=== PATIENT | male | born 1975 | race Caucasian/White ===

== ENCOUNTER 2017-11-26 08:48 | Day surgery (SDC) | payer BC ==
[~2017-11-26 08:48] MED LIST: Lactated Ringers 1,000 ML IV SCH
[2017-11-26] MEDS ORDERED: Lidocaine 2% 5 ML SDV ONE (09:50)
[2017-11-26] MEDS ORDERED: Midazolam 1 MG/ML 2 ML SDV ONE (09:51)
[2017-11-26] MEDS ORDERED: Propofol 200 MG/20 ML SDV ONE ×3 (09:51→10:09)
--- NOTE | 2017-11-26 09:55 | PCM.PREANE ---
Preanesthetic Assessment - Procedure Proposed Procedure: EGD - Anesthesia/Transfusion/Family Hx Anesthesia History: Prior Anesthesia Without Reaction Transfusion History: No Prior Transfusion(s) Intubation History: Unknown - Review of Systems General: Other (obesity) Pulmonary: No Symptoms Cardiovascular: No Symptoms Gastrointestinal: Other (GERD) Neurological: No Symptoms Other: Reports: None - Physical Assessment NPO Status Date: 11/25/17 NPO Status Time: 22:00 O2 Sat by Pulse Oximetry: 98 Respiratory Rate: 16 Vital Signs: Last Vital Signs Temp 97.0 F 11/26/17 09:01 Pulse 89 11/26/17 09:01 Resp 16 11/26/17 09:01 BP 126/69 11/26/17 09:01 Pulse Ox 98 11/26/17 09:01 Height: 5 ft 6 in Weight: 248 lb ASA Class: 2 Mental Status: Alert & Oriented x3 Airway Class: Mallampati = 2 Dentition: Reports: Normal Dentition Thyro-Mental Finger Breadths: 3 (goatee) Mouth Opening Finger Breadths: 3 ROM/Head Extension: Limited/Partial (short neck) Lungs: Clear to Auscultation, Normal Respiratory Effort Cardiovascular: Regular Rate, Regular Rhythm, No Murmurs - Allergies Allergies/Adverse Reactions: Allergies Allergy/AdvReac Type Severity Reaction Status Date / Time No Known Allergies Allergy Verified 11/22/17 10:02 - Blood Blood Available: No Product(s) Available: None - Anesthesia Plan Pre-Op Medication Ordered: None - Acknowledgements Anesthesia Type Planned: MAC Pt an Appropriate Candidate for the Planned Anesthesia: Yes Alternatives and Risks of Anesthesia Discussed w Pt/Guardian: Yes Pt/Guardian Understands and Agrees with Anesthesia Plan: Yes PreAnesthesia Questionnaire HEENT History: Reports: Other (See Below) Other HEENT History: uses reading glasses Musculoskeletal History: Reports: Fracture Other Musculoskeletal History: hx of fx hand Endocrine/Metabolic History: Reports: Obesity/BMI 30+ - Past Surgical History GI Surgical History: Reports: EGD, Hernia, Inguinal - SUBSTANCE USE Smoking Status *Q: Former Smoker Tobacco Use Within Last Twelve Months: No Recreational Drug Use History: No - HOME MEDS Home Medications: Home Meds Montelukast Sodium 10 mg PO BEDTIME PRN 11/22/17 [History] Omeprazole 20 mg PO DAILY 11/22/17 [History] - CURRENT (IN HOUSE) MEDS Current Meds: Current Medications Lactated Ringer's (Ringers, Lactated) 1,000 mls @ 125 mls/hr IV ASDIRECTED [facility] Last Admin: 11/26/17 09:05 Dose: 125 mls/hr
[2017-11-26] MEDS ORDERED: Sodium Chloride 0.9% 2.5 ML Syringe FLUSH PRN (10:15)
[2017-11-26] MEDS ORDERED: Ondansetron 4 MG/2 ML SDV IVPUSH PRN (10:15)
[2017-11-26] MEDS ORDERED: Sodium Chloride 0.9% 10 ML Syringe FLUSH PRN (10:15)
--- NOTE | 2017-11-26 10:18 | PCM.OPNOTE ---
- General Post-Op/Procedure Note Date of Surgery/Procedure: 11/26/17 Operative Procedure(s): Esophagogastroduodenoscopy with biopsy Pre Op Diagnosis: Gastroesophageal reflux disease with persistent cough. Post-Op Diagnosis: Gastritis. Hiatal hernia. Anesthesia Technique: MAC (ASA II) Primary Surgeon: Derrek Armenta Gyro Mechanic: Mark Cash Condition: Good Free Text/Narrative:: DICTATION [id number] CPT CODE 96480
--- NOTE | 2017-11-26 10:46 | PCM.POSTAN ---
POST ANESTHESIA ASSESSMENT - MENTAL STATUS Mental Status: Alert, Oriented - RESPIRATORY Respiratory Status: Respiratory Rate WNL, Airway Patent, O2 Saturation Stable - CARDIOVASCULAR CV Status: Pulse Rate WNL, Blood Pressure Stable - GASTROINTESTINAL GI Status: No Symptoms - POST OP HYDRATION Hydration Status: Adequate & Stable
--- NOTE | 2017-11-26 11:04 | PCM48HPAN ---
Post Anesthesia Note - EVALUATION WITHIN 48HRS OF ANESTHETIC Vital Signs in Normal Range: Yes Patient Participated in Evaluation: Yes Respiratory Function Stable: Yes (coughing similar to what he had been doing at home preop) Airway Patent: Yes Cardiovascular Function Stable: Yes Hydration Status Stable: Yes Pain Control Satisfactory: Yes Nausea and Vomiting Control Satisfactory: Yes Mental Status Recovered: Yes Resp Rate: 19
[2017-11-26] MEDS ORDERED: Racepinephrine 2.25% 0.5 ML Neb Soln NEB ONE (11:11)
--- NOTE | 2017-11-26 11:15 | PCM.SN ---
- Free Text/Narrative Note: Patient continues to cough. Consulted surgeon and agreed to try a racemic epinephrine treatment. See orders.
--- NOTE | 2017-11-26 13:00 | OR ---
SURGEON: Derrek Armenta M.D. DATE OF PROCEDURE: 11/26/2017 OPERATION PERFORMED: Esophagogastroduodenoscopy with biopsy. MANAGER CASE: Dr. Chacon, PGY2 ANESTHESIA: MAC. ASA CLASSIFICATION: II. PREOPERATIVE DIAGNOSIS: Gastroesophageal reflux disease with persistent cough. POSTOPERATIVE DIAGNOSES: 1. Mild gastritis. 2. Hiatal hernia without significant esophagitis. DESCRIPTION OF PROCEDURE: The patient was taken to the endoscopy room, positioned on the endoscopy table in the supine position. Time-out was called for appropriate identification of patient and procedure. Monitored anesthesia care was provided. The bite block was placed between the patient's teeth. The gastroscope was inserted through the bite block into the oropharynx and advanced through the esophagus and stomach into the duodenum where examination was now carried out in a retrograde fashion. The duodenum shows no acute inflammatory changes or ulcerations. The stomach does show [id number] gastritis. Antral biopsies were obtained to look for the presence of Helicobacter pylori. No ulcerations were noted. The gastroscope was retroflexed to visualize the proximal stomach. Hiatal hernia was again viewed from below. Again, no acute inflammatory changes were noted in the stomach. The gastroscope was then straightened and slowly withdrawn, aspirating the stomach as the scope was withdrawn. There did not appear to be any significant esophagitis and certainly no esophageal erosions or ulcerations were noted. The vocal cords were briefly visualized as the scope was withdrawn and noted to move symmetrically. The gastroscope was then removed with the patient having tolerated the procedure well. He was taken to recovery room in stable condition. GIACOMO / JOSE /[id number]
== END 2017-11-26 11:49 | disposition home or self-care (01) ==
LOC: MW.SDS 08:48
PROVIDERS: ATTEND Surgery
DX: K21.9 Gastro-esophageal reflux disease without esophagitis (principal); R05 Cough; K29.50 Unspecified chronic gastritis without bleeding; K44.9 Diaphragmatic hernia without obstruction or gangrene; J45.909 Unspecified asthma, uncomplicated; E66.9 Obesity, unspecified; Z68.41 Body mass index [BMI] 40.0-44.9, adult; Z79.899 Other long term (current) drug therapy; Z98.890 Other specified postprocedural states
CPT/HCPCS: 43239; 88305; 88312; 94640; J2250; J2704; J7120; 00731

== ENCOUNTER 2017-11-27 16:08 | Emergency (ER) | payer BC ==
[2017-11-27] MEDS ORDERED: Sodium Chloride 0.9% 10 ML Syringe FLUSH PRN ×2 (16:14→16:23)
[2017-11-27] MEDS ORDERED: Sodium Chloride 0.9% 2.5 ML Syringe FLUSH PRN ×2 (16:14→16:23)
--- NOTE | 2017-11-27 16:14 | EDM.PDOC ---
ED HPI GENERAL MEDICAL PROBLEM - General Stated Complaint: CHEST PAIN AND SHORTNESS OF BREATH Time Seen by Provider: 11/27/17 16:11 - History of Present Illness INITIAL COMMENTS - FREE TEXT/NARRATIVE: HISTORY AND PHYSICAL: History of present illness: The patient is a 42-year-old male who underwent same-day surgery yesterday for an EGD with biopsy under Mac anesthesia and was diagnosed with mild gastritis and a hiatal hernia and today presents to the ED with complaints of burning- like sensation in his mid chest and epigastrium associated with shortness of breath that occurred while he was walking up some stairs at work earlier. The patient states that after the procedure yesterday he just felt really wiped out and one home and slept and slept the whole night. He said this morning he woke up and felt fine and has been eating and drinking normally without difficulty swallowing foreign body sensation shortness of breath or chest pain. The discomfort that he is describing started when he was walking up some stairs and he felt like he was very short of breath and he had a burning-like sensation. The discomfort did not radiate and he did not take any [id number] medications or extra antacids for it. The patient says that he did have biopsies performed and he is currently on omeprazole and nothing has been adjusted or changed with respect to his therapy until he meets with Dr. Armenta next week area he initially presented to our clinic with complaints of a dry hacking cough and the EGD was performed because of those symptomatologies. The patient has not had any vomiting diarrhea black or tarry stools and has no productive cough fevers or chills. The ED the patient has a dry cough which I can appreciate and he does not feel short of breath. The patient and called the triage nurse at our clinic who referred him here. Review of systems: As per history of present illness and below otherwise all systems reviewed and negative. Past medical history: As per history of present illness and as reviewed below otherwise noncontributory. Surgical history: As per history of present illness and as reviewed below otherwise noncontributory. Social history: No reported history of drug or alcohol abuse. Family history: As per history of present illness and as reviewed below otherwise noncontributory. Physical exam: General: Well-developed well-nourished mildly overweight man who is nontoxic and speaks clearly and easily in the ED. He has a dry hacking cough in the ED which is very episodic but is not breathless on my conversation. Vital signs are noted by me HEENT: Atraumatic, normocephalic, negative for conjunctival pallor or scleral icterus, mucous membranes moist, throat clear, neck supple, nontender, trachea midline. Lungs: Clear to auscultation, breath sounds equal bilaterally, chest nontender. There is some slightly diminished breath sounds in the bases but there is no work of breathing or wheezing or stridor. There is no crepitus on palpation of the chest wall Heart: S1S2, regular rate and rhythm no overt murmurs Abdomen: Soft, nondistended, nontender. Negative for masses or hepatosplenomegaly. NABS Pelvis: Deferred Genitourinary: Deferred. Rectal: Deferred. Extremities: Atraumatic, negative for cords or calf pain. Neurovascular unremarkable. No pedal edema Neuro: Awake, alert, oriented. Cranial nerves II through XII unremarkable. Cerebellum unremarkable. Motor and sensory unremarkable throughout. Exam nonfocal. Diagnostics: EKG chest x-ray CBC CMP troponin H. pylori d-dimer Therapeutics: IV O2 monitor Protonix GI cocktail Patient and at bedside are aware of all testing results and after the GI cocktail and Protonix he feels significantly better. I did offer him observation admission due to the peculiar nature of this episode and he is declining that at this time. I will contact Dr. Armenta and see if you like me to change his home medication or add anything with the biopsies pending. The patient is aware of my concerns and accepts them. He still has a dry cough on my evaluation and will follow-up with his provider in the clinic regarding that. 1740: Case was discussed with Dr. Armenta who would like the patient to take his omeprazole twice a day and would like to add Carafate. Impression: Episode of atypical chest pain/dyspnea with history of gastritis and hiatal hernia improved Definitive disposition and diagnosis as appropriate pending reevaluation and review of above. epigastric Pain Score (Numeric/FACES): 3 - Related Data Allergies Allergy/AdvReac Type Severity Reaction Status Date / Time No Known Allergies Allergy Verified 11/27/17 16:17 Home Meds: Home Meds Montelukast Sodium 10 mg PO BEDTIME PRN 11/22/17 [History] Omeprazole 20 mg PO DAILY 11/22/17 [History] Past Medical History HEENT History: Reports: Other (See Below) Other HEENT History: uses reading glasses Musculoskeletal History: Reports: Fracture Other Musculoskeletal History: hx of fx hand Endocrine/Metabolic History: Reports: Obesity/BMI 30+ - Past Surgical History GI Surgical History: Reports: EGD, Hernia, Inguinal ED ROS GENERAL - Review of Systems Review Of Systems: ROS reveals no pertinent complaints other than HPI. ED EXAM, GENERAL - Physical Exam Exam: See Below (See dictation) Course - Vital Signs Last Recorded V/S: Last Vital Signs Temp 36.6 C 11/27/17 16:17 Pulse 104 H 11/27/17 16:17 Resp 16 11/27/17 16:17 BP 141/79 H 11/27/17 16:17 Pulse Ox 98 11/27/17 16:17 - Orders/Labs/Meds Orders: Active Orders 24 hr Category Date Time Status Cardiac Monitoring [RC] . DIRECTED Care 11/27/17 16:14 Active EKG Documentation Completion [RC] STAT Care 11/27/17 16:14 Active Oxygen Therapy, ED [RC] ASDIRECTED Care 11/27/17 16:14 Active Pulse Oximetry [RC] ASDIRECTED Care 11/27/17 16:14 Active Chest 2V [CR] Stat Exams 11/27/17 16:24 Taken Sodium Chloride 0.9% [Saline Flush] Med 11/27/17 16:23 Active 10 ml FLUSH ASDIRECTED PRN Sodium Chloride 0.9% [Saline Flush] Med 11/27/17 16:23 Active 2.5 ml FLUSH ASDIRECTED PRN Saline Lock Insert [OM.PC] Stat Oth 11/27/17 16:24 Ordered Medication Orders Sodium Chloride (Saline Flush) 10 ml FLUSH ASDIRECTED PRN PRN Reason: Keep Vein Open Sodium Chloride (Saline Flush) 2.5 ml FLUSH ASDIRECTED PRN PRN Reason: Keep Vein Open Labs: Laboratory Tests 11/27/17 11/27/17 11/27/17 Range/Units 16:35 16:35 16:35 WBC 9.93 (4.0-11.0) K/uL RBC 5.13 (4.50-5.90) M/uL Hgb 14.0 (13.0-17.0) g/dL Hct 41.0 (38.0-50.0) % MCV 79.9 L (80.0-98.0) fL MCH 27.3 (27.0-32.0) pg MCHC 34.1 (31.0-37.0) g/dL RDW Std Deviation 42.3 (28.0-62.0) fl RDW Coeff of Sony 15 (11.0-15.0) % Plt Count 189 (150-400) K/uL MPV 9.60 (7.40-12.00) fL Neut % (Auto) 77.7 (48.0-80.0) % Lymph % (Auto) 14.8 L (16.0-40.0) % Yates % (Auto) 6.6 (0.0-15.0) % Eos % (Auto) 0.8 (0.0-7.0) % Baso % (Auto) 0.1 (0.0-1.5) % Neut # (Auto) 7.7 H (1.4-5.7) K/uL Lymph # (Auto) 1.5 (0.6-2.4) K/uL Yates # (Auto) 0.7 (0.0-0.8) K/uL Eos # (Auto) 0.1 (0.0-0.7) K/uL Baso # (Auto) 0.0 (0.0-0.1) K/uL Nucleated RBC % 0.0 /100WBC Nucleated RBCs # 0 K/uL D-Dimer, Quantitative (0.0-0.52) mg/LFEU Sodium 137 (136-148) mmol/L Potassium 3.6 (3.5-5.1) mmol/L Chloride 103 (98-107) mmol/L Carbon Dioxide 23.8 (21.0-32.0) mmol/L BUN 17 (7.0-18.0) mg/dL Creatinine 1.2 (0.8-1.3) mg/dL Est Cr Clr Drug Dosing 72.37 mL/min Estimated GFR (MDRD) > 60.0 ml/min Glucose 106 (74-106) mg/dL Calcium 8.9 (8.5-10.1) mg/dL Total Bilirubin 0.5 (0.2-1.0) mg/dL AST 16 (15-37) IU/L ALT 32 (14-63) IU/L Alkaline Phosphatase 55 (46-116) U/L Troponin I < 0.050 (0.000-0.056) ng/mL Total Protein 7.6 (6.4-8.2) g/dL Albumin 3.9 (3.4-5.0) g/dL Globulin 3.7 H (2.0-3.5) g/dL Albumin/Globulin Ratio 1.1 L (1.3-2.8) H. pylori IgG Antibody NEGATIVE (NEG) 11/27/17 Range/Units 16:35 WBC (4.0-11.0) K/uL RBC (4.50-5.90) M/uL Hgb (13.0-17.0) g/dL Hct (38.0-50.0) % MCV (80.0-98.0) fL MCH (27.0-32.0) pg MCHC (31.0-37.0) g/dL RDW Std Deviation (28.0-62.0) fl RDW Coeff of Sony (11.0-15.0) % Plt Count (150-400) K/uL MPV (7.40-12.00) fL Neut % (Auto) (48.0-80.0) % Lymph % (Auto) (16.0-40.0) % Yates % (Auto) (0.0-15.0) % Eos % (Auto) (0.0-7.0) % Baso % (Auto) (0.0-1.5) % Neut # (Auto) (1.4-5.7) K/uL Lymph # (Auto) (0.6-2.4) K/uL Yates # (Auto) (0.0-0.8) K/uL Eos # (Auto) (0.0-0.7) K/uL Baso # (Auto) (0.0-0.1) K/uL Nucleated RBC % /100WBC Nucleated RBCs # K/uL D-Dimer, Quantitative 0.23 (0.0-0.52) mg/LFEU Sodium (136-148) mmol/L Potassium (3.5-5.1) mmol/L Chloride (98-107) mmol/L Carbon Dioxide (21.0-32.0) mmol/L BUN (7.0-18.0) mg/dL Creatinine (0.8-1.3) mg/dL Est Cr Clr Drug Dosing mL/min Estimated GFR (MDRD) ml/min Glucose (74-106) mg/dL Calcium (8.5-10.1) mg/dL Total Bilirubin (0.2-1.0) mg/dL AST (15-37) IU/L ALT (14-63) IU/L Alkaline Phosphatase (46-116) U/L Troponin I (0.000-0.056) ng/mL Total Protein (6.4-8.2) g/dL Albumin (3.4-5.0) g/dL Globulin (2.0-3.5) g/dL Albumin/Globulin Ratio (1.3-2.8) H. pylori IgG Antibody (NEG) Meds: Medications Generic Name Dose Route Start Last Admin Trade Name Freq PRN Reason Stop Dose Admin Sodium Chloride 10 ml 11/27/17 16:23 Saline Flush FLUSH ASDIRECTED PRN Keep Vein Open Sodium Chloride 2.5 ml 11/27/17 16:23 Saline Flush FLUSH ASDIRECTED PRN Keep Vein Open Discontinued Medications Generic Name Dose Route Start Last Admin Trade Name Freq PRN Reason Stop Dose Admin Al Hydroxide/Mg Hydroxide 15 0 ml 11/27/17 16:23 11/27/17 16:38 ml/ Metoclopramide HCl 5 mg/ PO 11/27/17 16:24 1 each Lidocaine HCl 5 ml ONETIME ONE Administration Pantoprazole Sodium 80 mg 11/27/17 16:23 11/27/17 16:38 Protonix Iv IVPUSH 11/27/17 16:24 80 mg .BOLUS ONE Administration Sodium Chloride 10 ml 11/27/17 16:14 Saline Flush FLUSH ASDIRECTED PRN Keep Vein Open Sodium Chloride 2.5 ml 11/27/17 16:14 Saline Flush FLUSH ASDIRECTED PRN Keep Vein Open Departure - Departure Time of Disposition: 17:37 Disposition: Home, Self-Care 01 Condition: Good Clinical Impression: Atypical chest pain - Discharge Information Instructions: Nonspecific Chest Pain, [id number] Referrals: PCP,None [Primary Care Provider] - Forms: ED Department Discharge Additional Instructions: The following information is given to patients seen in the emergency department who are being discharged to home. This information is to outline your options for follow-up care. We provide all patients seen in our emergency department with a follow-up referral. The need for follow-up, as well as the timing and circumstances, are variable depending upon the specifics of your emergency department visit. If you don't have a primary care physician on staff, we will provide you with a referral. We always advise you to contact your personal physician following an emergency department visit to inform them of the circumstance of the visit and for follow-up with them and/or the need for any referrals to a consulting specialist. The emergency department will also refer you to a specialist when appropriate. This referral assures that you have the opportunity for followup care with a specialist. All of these measure are taken in an effort to provide you with optimal care, which includes your followup. Under all circumstances we always encourage you to contact your private physician who remains a resource for coordinating your care. When calling for followup care, please make the office aware that this follow-up is from your recent emergency room visit. If for any reason you are refused follow-up, please contact the [facility] emergency department at and ask to speak to the emergency department charge nurse. [facility] Specialty Care-General Surgery Professional Building [address] [place] [id number] [facility] Primary care- Internal Medicine and Family [address] [address] Please contact your providers in the clinic for reevaluation and further care and return to ER as needed and as discussed Please take your omeprazole twice a day rather than once a day until you follow up with Dr. Armenta and at the [facility] as prescribed to you. - My Orders Last 24 Hours: My Active Orders 11/27/17 16:14 Cardiac Monitoring [RC] . DIRECTED EKG Documentation Completion [RC] STAT Oxygen Therapy, ED [RC] ASDIRECTED Pulse Oximetry [RC] ASDIRECTED 11/27/17 16:23 Sodium Chloride 0.9% [Saline Flush] 10 ml FLUSH ASDIRECTED PRN Sodium Chloride 0.9% [Saline Flush] 2.5 ml FLUSH ASDIRECTED PRN 11/27/17 16:24 Chest 2V [CR] Stat Saline Lock Insert [OM.PC] Stat - Assessment/Plan Last 24 Hours: My Active Orders 11/27/17 16:14 Cardiac Monitoring [RC] . DIRECTED EKG Documentation Completion [RC] STAT Oxygen Therapy, ED [RC] ASDIRECTED Pulse Oximetry [RC] ASDIRECTED 11/27/17 16:23 Sodium Chloride 0.9% [Saline Flush] 10 ml FLUSH ASDIRECTED PRN Sodium Chloride 0.9% [Saline Flush] 2.5 ml FLUSH ASDIRECTED PRN 11/27/17 16:24 Chest 2V [CR] Stat Saline Lock Insert [OM.PC] Stat
[2017-11-27] MEDS ORDERED: Alum Hydrox/Mag Hydrox/Simeth 15 ML, Metoclopramide 5 MG, Lidocaine 2% 5 ML PO ONE ×3 (16:23)
[2017-11-27] MEDS ORDERED: Pantoprazole 40 MG Vial IVPUSH ONE (16:23)
[2017-11-27 17:11] LABS: CHLORIDE,CL 103 mmol/L (98-107); SODIUM,NA 137 mmol/L (136-148)
--- NOTE | 2017-11-28 11:04 | CR ---
EXAM DATE: 11/27/17 PATIENT'S AGE: 42 Patient: LINDA MARTIN Facility: [place], [place] Site . Site : [id number] Study: XRay Chest [id number]/[id number] 5:04:40 PM Ordering Physician: Tyson Cid Final Report: INDICATION: Chest pain, shortness of breath. COMPARISON: PA chest dated 08/20/2012. TECHNIQUE: Two view chest. FINDINGS: The lungs are clear. The heart, mediastinum and pulmonary vessels are of normal size. There is no evidence of pleural fluid. IMPRESSION: Negative chest. Dictated by Michael Good MD @ Nov 27 2017 5:08PM (Electronic Signature) Report Signed by Proxy. ZANE
== END 2017-11-27 17:45 | disposition home or self-care (01) ==
LOC: MW.ED 16:08
DX: R07.89 Other chest pain (principal); R06.02 Shortness of breath; E66.9 Obesity, unspecified; Z87.19 Personal history of other diseases of the digestive system; Z98.890 Other specified postprocedural states
CPT/HCPCS: 36415; 71046; 80053; 84484; 85025; 85379; 86677; 93005; 96374; 99285; A9270; C9113

== ENCOUNTER 2021-09-01 06:21 | Day surgery (SDC) | payer BC ==
[~2021-09-01 06:21] MED LIST changes: +Sodium Chloride 0.9% 10 ML Syringe FLUSH PRN; +Sodium Chloride 0.9% 2.5 ML Syringe FLUSH PRN; +Sodium Chloride 0.9% 20 ML SDV IV PRN
[2021-09-01] MEDS ORDERED: fentaNYL 100 MCG/2 ML SDV ONE (07:26)
[2021-09-01] MEDS ORDERED: Midazolam 1 MG/ML 2 ML SDV ONE (07:26)
[2021-09-01] MEDS ORDERED: Propofol 200 MG/20 ML SDV ONE (07:26)
[2021-09-01] MEDS ORDERED: Ketamine 500 mg/10 ML MDV ONE (07:26)
== END 2021-09-01 09:31 | disposition home or self-care (01) ==
LOC: MW.SDS 06:21
PROVIDERS: ATTEND Surgery
DX: D12.8 Benign neoplasm of rectum (principal); D50.9 Iron deficiency anemia, unspecified; K44.9 Diaphragmatic hernia without obstruction or gangrene; K21.00 Gastro-esophageal reflux disease with esophagitis, without bleeding; N52.9 Male erectile dysfunction, unspecified; E66.9 Obesity, unspecified; Z79.899 Other long term (current) drug therapy; Z98.890 Other specified postprocedural states; Z68.41 Body mass index [BMI] 40.0-44.9, adult; Z87.891 Personal history of nicotine dependence
CPT/HCPCS: 43239; 45380; J2250; J2704; J3010; J3490; J7120; 00813